=== PATIENT | male | born 1970 | race Caucasian/White ===

== ENCOUNTER 2016-11-16 15:12 | Emergency (ER) | payer OTHER ==
[~2016-11-16] VITALS: Ht 167.6 cm; Wt 56.7 kg
[~2016-11-16 15:12] MED LIST: ALEVE220 MG PO; CELEXA20 MG PO; DEPAKOTE ER500 MG PO; DEPAKOTE500 MG PO; DILANTIN INFATA50 MG PO; Depakote ER (Extende PO; KEPPRA500 MG PO; Keppra PO; LEVOTHROID,SY0.05 MG PO; OXCARBAZEPINE600 MG PO; PHENYTEK PO; PHENYTOIN SODI100 M1 PO; Phenytek PO; TYLENOL EXTRA500 MG PO; ZITHROMAX250 MG PO
[2016-11-16 15:59] LABS: POINT-OF-CARE METER ID UU13113702
[2016-11-16 17:27] VITALS: BP 136/100
== END 2016-11-16 17:28 | disposition home or self-care (01) ==
LOC: EME 15:12
PROVIDERS: Emergency Medicine
DX: G40.909 Epilepsy, unspecified, not intractable, without status epilepticus (principal); S80.211A Abrasion, right knee, initial encounter; S00.01XA Abrasion of scalp, initial encounter
CPT/HCPCS: 70450; 82948; 93005; 99281; 99284

== ENCOUNTER 2016-12-02 17:10 | Emergency (ER) | payer OTHER ==
[~2016-12-02] VITALS: Ht 167.6 cm; Wt 54.2 kg
[2016-12-02 17:53] LABS: HEMATOCRIT 39.6 % (38.0-50.0); MCH 30.5 PG (29.0-34.0); MCHC 33.8 G/DL (30.0-36.0); MEAN PLAT.VOLUME 9.6 uM^3 (9.0-12.4); PLATELET COUNT 130 K/uL (156-360); RBC DIS.WIDTH-CV 12.2 % (11.8-14.6); WHITE BLOOD COUNT 5.6 K/uL (4.1-10.2)
[2016-12-02 18:03] LABS: CHLORIDE 103 mEq/L (99-109); POTASSIUM 4.7 mEq/L (3.7-5.4); SODIUM 140 mEq/L (136-147)
[2016-12-02 18:06] LABS: ANION GAP 10 MEQ/L (2-14); GLUCOSE 131 mg/dL (70-99)
[2016-12-02 18:09] LABS: GFR ESTIMATE (CALCULATED) > 59 mL/min/
[2016-12-02 18:11] LABS: CREATINE KINASE 101 IU/L (1-294); TOTAL CK 101 IU/L (1-294); UREA NITROGEN (BUN) 20 mg/dL (9-23)
[2016-12-02 18:20] LABS: CK-MB 1.2 ng/mL (0.0-4.9)
[2016-12-02 18:57] LABS: ADD MIUA? NO; BILIRUBIN NEGATIVE; BLOOD NEGATIVE; COLOR YELLOW ((YELLOW)); GLUCOSE (STRIP) NEGATIVE; KETONES 5; LEUKOCYTES NEGATIVE; NITRITE NEGATIVE; PROTEIN (STRIP) NEGATIVE; SPECIFIC GRAVITY 1.021 (1.000-1.030); UCUL ADDED? NO; UROBILINOGEN 0.2 MG/DL (0.2-1.0)
[2016-12-02 20:24] VITALS: BP 120/80
== END 2016-12-02 20:27 | disposition home or self-care (01) ==
LOC: EME 17:10
DX: G40.909 Epilepsy, unspecified, not intractable, without status epilepticus (principal); R89.2 Abnormal level of other drugs, medicaments and biological substances in specimens from other organs, systems and tissues; E03.9 Hypothyroidism, unspecified
CPT/HCPCS: 70450; 80048; 80156; 80164; 80184; 80185; 81003; 82550; 82553; 85027; 99281; 99285

== ENCOUNTER 2017-07-05 15:36 | Emergency (ER) | payer OTHER ==
[~2017-07-05] VITALS: Ht 167.6 cm; Wt 52.2 kg
[2017-07-05 16:13] LABS: HEMATOCRIT 34.5 % (38.0-50.0); MCH 23.9 PG (29.0-34.0); MCHC 30.7 G/DL (30.0-36.0); MCV 77.9 FL (86-99); PLATELET COUNT 172 K/uL (156-360); RBC DIS.WIDTH-CV 16.8 % (11.8-14.6); RED BLOOD COUNT 4.43 M/uL (4.00-5.50); WHITE BLOOD COUNT 4.2 K/uL (4.1-10.2)
[2017-07-05 16:21] LABS: CHLORIDE 108 mEq/L (99-109); POTASSIUM 4.7 mEq/L (3.7-5.4); SODIUM 140 mEq/L (136-147)
[2017-07-05 16:23] LABS: GLUCOSE 92 mg/dL (70-99)
[2017-07-05 16:24] LABS: ANION GAP 8 MEQ/L (2-14)
[2017-07-05 16:27] LABS: GFR ESTIMATE (CALCULATED) > 59 mL/min/
[2017-07-05 16:28] LABS: UREA NITROGEN (BUN) 24 mg/dL (9-23)
[2017-07-05] MEDS ORDERED: DILANTIN100 MG PO ×2 (16:49→16:50)
[2017-07-05] MEDS ORDERED: LEVOTHYROXINE50 MCG PO (16:49)
[2017-07-05 16:51] LABS: SAMPLE HEMOLYSIS CHECK 0; SAMPLE ICTERIC CHECK 0; SAMPLE LIPEMIA CHECK 0
[2017-07-05] MEDS ORDERED: DEPAKOTE ER500 MG PO (16:51)
[2017-07-05 18:14] VITALS: BP 129/97
== END 2017-07-05 18:34 | disposition home or self-care (01) ==
LOC: EME 15:36
PROVIDERS: Emergency Medicine
DX: G40.909 Epilepsy, unspecified, not intractable, without status epilepticus (principal); E03.9 Hypothyroidism, unspecified; F79 Unspecified intellectual disabilities; Z87.891 Personal history of nicotine dependence
CPT/HCPCS: 80048; 80164; 80185; 85027; 99281; 99284

== ENCOUNTER 2018-02-06 20:11 | Emergency (ER) | payer OTHER ==
[~2018-02-06] VITALS: Ht 167.6 cm; Wt 51.6 kg
[~2018-02-06 20:11] MED LIST changes: +DILANTIN100 MG PO; +LEVOTHYROXINE50 MCG PO
[2018-02-06 21:59] LABS: HEMATOCRIT 37.4 % (38.0-50.0); MCH 25.5 PG (29.0-34.0); MCHC 32.1 G/DL (30.0-36.0); MCV 79.6 FL (86-99); PLATELET COUNT 134 K/uL (156-360); RBC DIS.WIDTH-CV 17.5 % (11.8-14.6); RBC DIS.WIDTH-SD 50.4 % (39-53); WHITE BLOOD COUNT 5.3 K/uL (4.1-10.2)
[2018-02-06] MEDS ORDERED: KEPPRA750 MG PO (22:00)
[2018-02-06] MEDS ORDERED: DEPAKOTE500 MG PO (22:01)
[2018-02-06] MEDS ORDERED: DILANTIN100 MG PO ×2 (22:01)
[2018-02-06 22:18] LABS: ALBUMIN 4.1 g/dL (3.2-4.8); CHLORIDE 104 mEq/L (99-109); POTASSIUM 5.3 mEq/L (3.7-5.4); SODIUM 139 mEq/L (136-147)
[2018-02-06 22:21] LABS: GLUCOSE 86 mg/dL (70-99)
[2018-02-06 22:23] LABS: TOTAL BILIRUBIN 0.2 mg/dL (0.0-1.0)
[2018-02-06 22:24] LABS: ALKALINE PHOSPHATASE 69 IU/L (3-129); SERUM ETHYL ALCOHOL < 10 mg/dL
[2018-02-06 22:25] LABS: CREATININE 0.8 mg/dL (0.6-1.3); GFR ESTIMATE (CALCULATED) > 59 mL/min/ (58.99-99999)
[2018-02-06 22:26] LABS: AST (GOT) 19 IU/L (2-34); UREA NITROGEN (BUN) 19 mg/dL (9-23)
[2018-02-06 22:27] LABS: ALT (GPT) 16 IU/L (3-49)
[2018-02-07 00:16] VITALS: BP 128/83
== END 2018-02-07 00:18 | disposition home or self-care (01) ==
LOC: EME → EDBD 20:11 → EME 02-07 00:18
PROVIDERS: Emergency Medicine
DX: S09.8XXA Other specified injuries of head, initial encounter (principal); W10.9XXA Fall (on) (from) unspecified stairs and steps, initial encounter; G40.909 Epilepsy, unspecified, not intractable, without status epilepticus; R42 Dizziness and giddiness
CPT/HCPCS: 80053; 80185; 83605; 85027; 93005; 99281; 99285; G0480